=== PATIENT | male | born 1975 | race African-American/Black ===

== ENCOUNTER 2020-06-29 07:49 | Inpatient (IN) | payer SELFPAY ==
[~2020-06-29] VITALS: Ht 165.1 cm; Wt 80.0 kg
[2020-06-29] MEDS ORDERED: IV NORMAL SALINE 1000ML BAG 1,000 ML IV ONE ×2 (08:15→10:30)
[2020-06-29] MEDS ORDERED: MORPHINE SULFATE 4 MG/ML VIAL. IV ONE (08:15)
[2020-06-29] MEDS ORDERED: ONDANSETRON PF 4 MG/2 ML VIAL. IVP ONE (08:15)
[2020-06-29 08:19] LABS: BASO % 1 % (0-3); EOS % 0 % (0-3); HEMATOCRIT 47.5 % (39.0-53.0); HEMOGLOBIN 16.2 g/dL (13.0-17.5); LYMPH # 1.4 x10^3/uL (1.0-4.8); LYMPH % 14 % (24-48); MEAN CORPUSCULAR HEMOGLOBIN 34 pg (25-35); MEAN CORPUSCULAR HGB CONC 34 g/dL (31-37); MEAN CORPUSCULAR VOLUME 98 fL (79-100); MONO # 0.7 x10^3/uL (0.0-1.1); MONO % 7 % (0-9); NEUT # 7.6 x10^3/uL (1.8-7.7); NEUT % 78 % (31-73); PLATELET COUNT 315 x10^3/uL (140-400); RED BLOOD COUNT 4.83 x10^6/uL (4.30-5.70); RED CELL DISTRIBUTION WIDTH 13.8 % (11.5-14.5); WHITE BLOOD COUNT 9.7 x10^3/uL (4.0-11.0)
[2020-06-29 08:28] LABS: CALCIUM 8.7 mg/dL (8.5-10.1); CREATININE 0.8 mg/dL (0.7-1.3); GFR 128.3; POTASSIUM 4.2 mmol/L (3.5-5.1)
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
[2020-06-29 08:44] LABS: ALBUMIN 4.1 g/dL (3.4-5.0); TOTAL BILIRUBIN 0.5 mg/dL (0.2-1.0); TOTAL PROTEIN 8.3 g/dL (6.4-8.2)
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
[2020-06-29] MEDS ORDERED: CONTRAST GIVEN. MC PRN ×2 (09:30→18:00)
[2020-06-29] MEDS ORDERED: IOHEXOL 300 MG/ML 100ML VIAL. IV ONE ×2 (09:30→18:00)
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
[2020-06-29] MEDS ORDERED: ONDANSETRON PF 4 MG/2 ML VIAL. IV PRN ×2 (12:00→12:30)
[2020-06-29] MEDS: IV NORMAL SALINE 1000ML BAG 1,000 ML IV SCH ×4 (12:00→22:26)
[2020-06-29 12:30] VITALS: BP 150/96
[2020-06-29] MEDS ORDERED: LORazepam 0.5 MG TABLET PO PRN (12:30)
[2020-06-29] MEDS ORDERED: DOCUSATE SODIUM 100 MG CAPSULE. PO PRN (12:30)
[2020-06-29] MEDS ORDERED: PANTOPRAZOLE 40 MG TABLET.DR. PO ONE (12:30)
[2020-06-29] MEDS ORDERED: ALBUTEROL SULFATE 2.5 MG/3 ML NEBU. NEB PRN (12:30)
[2020-06-29] MEDS ORDERED: SODIUM PHOSPHATES 19/7GM 133 ML ENEMA. PR PRN (12:30)
[2020-06-29] MEDS ORDERED: MAG HYDROX/ALUMINUM HYD/SIMETH 30 ML ORAL.SUSP PO PRN (12:30)
[2020-06-29] MEDS ORDERED: ACETAMINOPHEN 325 MG TABLET. PO PRN (12:30)
[2020-06-29] MEDS ORDERED: cloNIDine HCL 0.1 MG TABLET PO PRN (12:30)
[2020-06-29] MEDS ORDERED: HALOPERIDOL LACTATE 5 MG/ML VIAL. IVP PRN (12:30)
[2020-06-29] MEDS ORDERED: 0.9 % SODIUM CHLORIDE 10 ML DISP.SYRIN. IV PRN (12:30)
[2020-06-29] MEDS ORDERED: guaiFENesin ORAL 200 MG/10 ML LIQUID. PO PRN (12:30)
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
[2020-06-29] MEDS ORDERED: MULTIVIT INFUSN,ADULT 4,VIT K 10 ML, THIAMINE INJ 100 MG, FOLIC ACID INJ 1 MG in IV NOR... IV ONE (13:00)
--- NOTE | 2020-06-29 13:15 | NUR ---
blood pressure remains elevated; given morphine for pain
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
[2020-06-29] MEDS: MORPHINE SULFATE 4 MG/ML VIAL. IV PRN ×2 (13:40→22:27)
[2020-06-29] MEDS: ENOXAPARIN 40 MG/0.4 ML SYRINGE. SQ SCH (13:40)
[2020-06-29 14:19] VITALS: BP 136/95
[2020-06-29] MEDS: cloNIDine HCL 0.1 MG TABLET PO PRN (14:20)
--- NOTE | 2020-06-29 14:20 | NUR ---
diastolic blood pressure remains elevated; medicated with Catapres. mother at bedside. states that the morphine helped with pain.
[2020-06-29 15:12] VITALS: BP 128/88
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
--- NOTE | 2020-06-29 17:51 | PDOC ---
PULMONARY PROGRESS NOTES DATE: 06/29/20 TIME: 17:50 Vitals Vital Signs Date Time Temp Pulse Resp B/P (MAP) Pulse Ox O2 Delivery O2 Flow Rate FiO2 06/29/20 17:11 97 Room Air 06/29/20 15:12 97.8 81 18 128/88 (101) 97.8 Labs Laboratory Tests Test 06/29/20 08:10 White Blood Count 9.7 x10^3/uL (4.0-11.0) Red Blood Count 4.83 x10^6/uL (4.30-5.70) Hemoglobin 16.2 g/dL (13.0-17.5) Hematocrit 47.5 % (39.0-53.0) Mean Corpuscular Volume 98 fL (79-100) Mean Corpuscular Hemoglobin 34 pg (25-35) Mean Corpuscular Hemoglobin Concent 34 g/dL (31-37) Red Cell Distribution Width 13.8 % (11.5-14.5) Platelet Count 315 x10^3/uL (140-400) Neutrophils (%) (Auto) 78 % (31-73) Lymphocytes (%) (Auto) 14 % (24-48) Monocytes (%) (Auto) 7 % (0-9) Eosinophils (%) (Auto) 0 % (0-3) Basophils (%) (Auto) 1 % (0-3) Neutrophils # (Auto) 7.6 x10^3/uL (1.8-7.7) Lymphocytes # (Auto) 1.4 x10^3/uL (1.0-4.8) Monocytes # (Auto) 0.7 x10^3/uL (0.0-1.1) Eosinophils # (Auto) 0.0 x10^3/uL (0.0-0.7) Basophils # (Auto) 0.0 x10^3/uL (0.0-0.2) Sodium Level 138 mmol/L (136-145) Potassium Level 4.2 mmol/L (3.5-5.1) Chloride Level 102 mmol/L (98-107) Carbon Dioxide Level 24 mmol/L (21-32) Anion Gap 12 (6-14) Blood Urea Nitrogen 11 mg/dL (8-26) Creatinine 0.8 mg/dL (0.7-1.3) Estimated GFR (Cockcroft-Gault) 128.3 BUN/Creatinine Ratio 14 (6-20) Glucose Level 108 mg/dL (70-99) Calcium Level 8.7 mg/dL (8.5-10.1) Total Bilirubin 0.5 mg/dL (0.2-1.0) Aspartate Amino Transf (AST/SGOT) 120 U/L (15-37) Alanine Aminotransferase (ALT/SGPT) 53 U/L (16-63) Alkaline Phosphatase 28 U/L (46-116) Creatine Kinase 6312 U/L (39-308) Total Protein 8.3 g/dL (6.4-8.2) Albumin 4.1 g/dL (3.4-5.0) Albumin/Globulin Ratio 1.0 (1.0-1.7) Ethyl Alcohol Level 10 mg/dL (0-10) Laboratory Tests Test 06/29/20 08:10 White Blood Count 9.7 x10^3/uL (4.0-11.0) Red Blood Count 4.83 x10^6/uL (4.30-5.70) Hemoglobin 16.2 g/dL (13.0-17.5) Hematocrit 47.5 % (39.0-53.0) Mean Corpuscular Volume 98 fL (79-100) Mean Corpuscular Hemoglobin 34 pg (25-35) Mean Corpuscular Hemoglobin Concent 34 g/dL (31-37) Red Cell Distribution Width 13.8 % (11.5-14.5) Platelet Count 315 x10^3/uL (140-400) Neutrophils (%) (Auto) 78 % (31-73) Lymphocytes (%) (Auto) 14 % (24-48) Monocytes (%) (Auto) 7 % (0-9) Eosinophils (%) (Auto) 0 % (0-3) Basophils (%) (Auto) 1 % (0-3) Neutrophils # (Auto) 7.6 x10^3/uL (1.8-7.7) Lymphocytes # (Auto) 1.4 x10^3/uL (1.0-4.8) Monocytes # (Auto) 0.7 x10^3/uL (0.0-1.1) Eosinophils # (Auto) 0.0 x10^3/uL (0.0-0.7) Basophils # (Auto) 0.0 x10^3/uL (0.0-0.2) Sodium Level 138 mmol/L (136-145) Potassium Level 4.2 mmol/L (3.5-5.1) Chloride Level 102 mmol/L (98-107) Carbon Dioxide Level 24 mmol/L (21-32) Anion Gap 12 (6-14) Blood Urea Nitrogen 11 mg/dL (8-26) Creatinine 0.8 mg/dL (0.7-1.3) Estimated GFR (Cockcroft-Gault) 128.3 BUN/Creatinine Ratio 14 (6-20) Glucose Level 108 mg/dL (70-99) Calcium Level 8.7 mg/dL (8.5-10.1) Total Bilirubin 0.5 mg/dL (0.2-1.0) Aspartate Amino Transf (AST/SGOT) 120 U/L (15-37) Alanine Aminotransferase (ALT/SGPT) 53 U/L (16-63) Alkaline Phosphatase 28 U/L (46-116) Creatine Kinase 6312 U/L (39-308) Total Protein 8.3 g/dL (6.4-8.2) Albumin 4.1 g/dL (3.4-5.0) Albumin/Globulin Ratio 1.0 (1.0-1.7) Ethyl Alcohol Level 10 mg/dL (0-10) Impression . Full consult to be dictated Patient examined and evaluated. CT reviewed, no significant pneumothorax no pulmonary contusion, I will sign off, please call if needed KERRI BROWN MD Jun 29, 2020 17:51
[2020-06-29] MEDS ORDERED: IOHEXOL 240 MG/ML 50ML VIAL. PO ONE (18:00)
[2020-06-29 18:23] VITALS: BP 139/99
--- NOTE | 2020-06-29 18:36 | NUR ---
offered contrast for ct scan. he refused at this time. ct scan notified. if change his mind will call ct. scan
[2020-06-29 22:29] VITALS: BP 138/99
--- NOTE | 2020-06-29 22:41 | NUR ---
CT called regarding Patient declining CT scan earlier. Pqatient questioned as to if he would do CT scan. Patient refused. Patient stated "I've been through enough, I just want to go home."
[2020-06-30 02:38] VITALS: BP 124/89
[2020-06-30] MEDS: IV NORMAL SALINE 1000ML BAG 1,000 ML IV SCH ×3 (04:00→12:10)
--- NOTE | 2020-06-30 04:36 | EKG ---
[facility] [address] [place] [address] Test Date: 2020-06-29 Test Time: 08:06:34 Pat Name: SHAHZAD PETERSON Department: Room: [facility] Gender: M Alpine Patroller: : 1975 Requested By: DARLENE NGUYEN Order Number: [id number] Reading MD: Measurements Intervals Norris Rate: 95 P: 36 TN: 180 QRS: 38 QRSD: 82 T: 21 QT: 336 QTc: 425 Interpretive Statements SINUS RHYTHM OTHERWISE NORMAL ECG RI6.02 No previous ECG available for comparison
[2020-06-30 04:54] LABS: BASO # 0.1 x10^3/uL (0.0-0.2); BASO % 1 % (0-3); EOS # 0.1 x10^3/uL (0.0-0.7); EOS % 1 % (0-3); HEMOGLOBIN 14.1 g/dL (13.0-17.5); LYMPH # 2.7 x10^3/uL (1.0-4.8); LYMPH % 43 % (24-48); MEAN CORPUSCULAR HEMOGLOBIN 33 pg (25-35); MEAN CORPUSCULAR HGB CONC 34 g/dL (31-37); MEAN CORPUSCULAR VOLUME 99 fL (79-100); MONO # 0.7 x10^3/uL (0.0-1.1); MONO % 11 % (0-9); NEUT # 2.8 x10^3/uL (1.8-7.7); NEUT % 44 % (31-73); PLATELET COUNT 251 x10^3/uL (140-400); RED BLOOD COUNT 4.22 x10^6/uL (4.30-5.70); RED CELL DISTRIBUTION WIDTH 13.9 % (11.5-14.5); WHITE BLOOD COUNT 6.4 x10^3/uL (4.0-11.0)
[2020-06-30 05:07] LABS: CALCIUM 8.1 mg/dL (8.5-10.1); CREATININE 0.8 mg/dL (0.7-1.3); GFR 128.3; POTASSIUM 4.3 mmol/L (3.5-5.1)
[2020-06-30 05:21] LABS: ALBUMIN 3.3 g/dL (3.4-5.0); TOTAL BILIRUBIN 0.7 mg/dL (0.2-1.0); TOTAL PROTEIN 6.5 g/dL (6.4-8.2)
[2020-06-30 06:44] VITALS: BP 132/96
--- NOTE | 2020-06-30 08:44 | PDOC ---
PULMONARY PROGRESS NOTES DATE: 06/30/20 TIME: 08:44 Vitals Vital Signs Date Time Temp Pulse Resp B/P (MAP) Pulse Ox O2 Delivery O2 Flow Rate FiO2 06/30/20 06:44 98.6 73 18 132/96 (108) 96 Room Air 98.6 Labs Laboratory Tests Test 06/29/20 08:10 06/30/20 04:30 White Blood Count 9.7 x10^3/uL (4.0-11.0) 6.4 x10^3/uL (4.0-11.0) Red Blood Count 4.83 x10^6/uL (4.30-5.70) 4.22 x10^6/uL (4.30-5.70) Hemoglobin 16.2 g/dL (13.0-17.5) 14.1 g/dL (13.0-17.5) Hematocrit 47.5 % (39.0-53.0) 42.0 % (39.0-53.0) Mean Corpuscular Volume 98 fL (79-100) 99 fL (79-100) Mean Corpuscular Hemoglobin 34 pg (25-35) 33 pg (25-35) Mean Corpuscular Hemoglobin Concent 34 g/dL (31-37) 34 g/dL (31-37) Red Cell Distribution Width 13.8 % (11.5-14.5) 13.9 % (11.5-14.5) Platelet Count 315 x10^3/uL (140-400) 251 x10^3/uL (140-400) Neutrophils (%) (Auto) 78 % (31-73) 44 % (31-73) Lymphocytes (%) (Auto) 14 % (24-48) 43 % (24-48) Monocytes (%) (Auto) 7 % (0-9) 11 % (0-9) Eosinophils (%) (Auto) 0 % (0-3) 1 % (0-3) Basophils (%) (Auto) 1 % (0-3) 1 % (0-3) Neutrophils # (Auto) 7.6 x10^3/uL (1.8-7.7) 2.8 x10^3/uL (1.8-7.7) Lymphocytes # (Auto) 1.4 x10^3/uL (1.0-4.8) 2.7 x10^3/uL (1.0-4.8) Monocytes # (Auto) 0.7 x10^3/uL (0.0-1.1) 0.7 x10^3/uL (0.0-1.1) Eosinophils # (Auto) 0.0 x10^3/uL (0.0-0.7) 0.1 x10^3/uL (0.0-0.7) Basophils # (Auto) 0.0 x10^3/uL (0.0-0.2) 0.1 x10^3/uL (0.0-0.2) Sodium Level 138 mmol/L (136-145) 138 mmol/L (136-145) Potassium Level 4.2 mmol/L (3.5-5.1) 4.3 mmol/L (3.5-5.1) Chloride Level 102 mmol/L (98-107) 105 mmol/L (98-107) Carbon Dioxide Level 24 mmol/L (21-32) 26 mmol/L (21-32) Anion Gap 12 (6-14) 7 (6-14) Blood Urea Nitrogen 11 mg/dL (8-26) 11 mg/dL (8-26) Creatinine 0.8 mg/dL (0.7-1.3) 0.8 mg/dL (0.7-1.3) Estimated GFR (Cockcroft-Gault) 128.3 128.3 BUN/Creatinine Ratio 14 (6-20) 14 (6-20) Glucose Level 108 mg/dL (70-99) 86 mg/dL (70-99) Calcium Level 8.7 mg/dL (8.5-10.1) 8.1 mg/dL (8.5-10.1) Total Bilirubin 0.5 mg/dL (0.2-1.0) 0.7 mg/dL (0.2-1.0) Aspartate Amino Transf (AST/SGOT) 120 U/L (15-37) 76 U/L (15-37) Alanine Aminotransferase (ALT/SGPT) 53 U/L (16-63) 48 U/L (16-63) Alkaline Phosphatase 28 U/L (46-116) 21 U/L (46-116) Creatine Kinase 6312 U/L (39-308) 3884 U/L (39-308) Total Protein 8.3 g/dL (6.4-8.2) 6.5 g/dL (6.4-8.2) Albumin 4.1 g/dL (3.4-5.0) 3.3 g/dL (3.4-5.0) Albumin/Globulin Ratio 1.0 (1.0-1.7) 1.0 (1.0-1.7) Ethyl Alcohol Level 10 mg/dL (0-10) Laboratory Tests Test 06/30/20 04:30 White Blood Count 6.4 x10^3/uL (4.0-11.0) Red Blood Count 4.22 x10^6/uL (4.30-5.70) Hemoglobin 14.1 g/dL (13.0-17.5) Hematocrit 42.0 % (39.0-53.0) Mean Corpuscular Volume 99 fL (79-100) Mean Corpuscular Hemoglobin 33 pg (25-35) Mean Corpuscular Hemoglobin Concent 34 g/dL (31-37) Red Cell Distribution Width 13.9 % (11.5-14.5) Platelet Count 251 x10^3/uL (140-400) Neutrophils (%) (Auto) 44 % (31-73) Lymphocytes (%) (Auto) 43 % (24-48) Monocytes (%) (Auto) 11 % (0-9) Eosinophils (%) (Auto) 1 % (0-3) Basophils (%) (Auto) 1 % (0-3) Neutrophils # (Auto) 2.8 x10^3/uL (1.8-7.7) Lymphocytes # (Auto) 2.7 x10^3/uL (1.0-4.8) Monocytes # (Auto) 0.7 x10^3/uL (0.0-1.1) Eosinophils # (Auto) 0.1 x10^3/uL (0.0-0.7) Basophils # (Auto) 0.1 x10^3/uL (0.0-0.2) Sodium Level 138 mmol/L (136-145) Potassium Level 4.3 mmol/L (3.5-5.1) Chloride Level 105 mmol/L (98-107) Carbon Dioxide Level 26 mmol/L (21-32) Anion Gap 7 (6-14) Blood Urea Nitrogen 11 mg/dL (8-26) Creatinine 0.8 mg/dL (0.7-1.3) Estimated GFR (Cockcroft-Gault) 128.3 BUN/Creatinine Ratio 14 (6-20) Glucose Level 86 mg/dL (70-99) Calcium Level 8.1 mg/dL (8.5-10.1) Total Bilirubin 0.7 mg/dL (0.2-1.0) Aspartate Amino Transf (AST/SGOT) 76 U/L (15-37) Alanine Aminotransferase (ALT/SGPT) 48 U/L (16-63) Alkaline Phosphatase 21 U/L (46-116) Creatine Kinase 3884 U/L (39-308) Total Protein 6.5 g/dL (6.4-8.2) Albumin 3.3 g/dL (3.4-5.0) Albumin/Globulin Ratio 1.0 (1.0-1.7) Impression . Full consult dictated Patient examined and evaluated. CT reviewed, no significant pneumothorax no pulmonary contusion, I will sign off, please call if needed KERRI BROWN MD Jun 30, 2020 08:44
[2020-06-30] MEDS: THIAMINE 100 MG TABLET. PO SCH (08:56)
[2020-06-30] MEDS: FOLIC ACID 1 MG TABLET. PO SCH (08:57)
[2020-06-30] MEDS: MULTIVITAMIN with MINERAL TABLET. PO SCH (08:57)
--- NOTE | 2020-06-30 09:00 | NUR ---
refused the Ct scan of the abdomen. states" there is nothing wrong with my stomach" denies any abdominal discomfort and is passing flatus. has not had a bm at this time. no appetite, but no nausea.
--- NOTE | 2020-06-30 09:50 | PDOC ---
FAITH STOKES CRAFT COORDINATOR 06/30/20 0950: SURGICAL PROGRESS NOTE DATE: 06/30/20 TIME: 09:49 Subjective denies abdominal pain no nausea or emesis tolerating diet not wanting to drink contrast for ct Vital Signs Vital Signs Date Time Temp Pulse Resp B/P (MAP) Pulse Ox O2 Delivery O2 Flow Rate FiO2 06/30/20 08:00 Room Air 06/30/20 06:44 98.6 73 18 132/96 (108) 96 98.6 I&O l Intake and Output 06/30/20 07:00 Intake Total 5807.2 ml Output Total 2 ml Balance 5805.2 ml Intake Oral 1250 ml IV Total 4557.2 ml Output Urine Total 2 ml General: Alert, Oriented X3, Cooperative Abdomen: Soft, No tenderness, No hepatosplenomegaly Labs Laboratory Tests Test 06/29/20 08:10 06/30/20 04:30 White Blood Count 9.7 x10^3/uL (4.0-11.0) 6.4 x10^3/uL (4.0-11.0) Red Blood Count 4.83 x10^6/uL (4.30-5.70) 4.22 x10^6/uL (4.30-5.70) Hemoglobin 16.2 g/dL (13.0-17.5) 14.1 g/dL (13.0-17.5) Hematocrit 47.5 % (39.0-53.0) 42.0 % (39.0-53.0) Mean Corpuscular Volume 98 fL (79-100) 99 fL (79-100) Mean Corpuscular Hemoglobin 34 pg (25-35) 33 pg (25-35) Mean Corpuscular Hemoglobin Concent 34 g/dL (31-37) 34 g/dL (31-37) Red Cell Distribution Width 13.8 % (11.5-14.5) 13.9 % (11.5-14.5) Platelet Count 315 x10^3/uL (140-400) 251 x10^3/uL (140-400) Neutrophils (%) (Auto) 78 % (31-73) 44 % (31-73) Lymphocytes (%) (Auto) 14 % (24-48) 43 % (24-48) Monocytes (%) (Auto) 7 % (0-9) 11 % (0-9) Eosinophils (%) (Auto) 0 % (0-3) 1 % (0-3) Basophils (%) (Auto) 1 % (0-3) 1 % (0-3) Neutrophils # (Auto) 7.6 x10^3/uL (1.8-7.7) 2.8 x10^3/uL (1.8-7.7) Lymphocytes # (Auto) 1.4 x10^3/uL (1.0-4.8) 2.7 x10^3/uL (1.0-4.8) Monocytes # (Auto) 0.7 x10^3/uL (0.0-1.1) 0.7 x10^3/uL (0.0-1.1) Eosinophils # (Auto) 0.0 x10^3/uL (0.0-0.7) 0.1 x10^3/uL (0.0-0.7) Basophils # (Auto) 0.0 x10^3/uL (0.0-0.2) 0.1 x10^3/uL (0.0-0.2) Sodium Level 138 mmol/L (136-145) 138 mmol/L (136-145) Potassium Level 4.2 mmol/L (3.5-5.1) 4.3 mmol/L (3.5-5.1) Chloride Level 102 mmol/L (98-107) 105 mmol/L (98-107) Carbon Dioxide Level 24 mmol/L (21-32) 26 mmol/L (21-32) Anion Gap 12 (6-14) 7 (6-14) Blood Urea Nitrogen 11 mg/dL (8-26) 11 mg/dL (8-26) Creatinine 0.8 mg/dL (0.7-1.3) 0.8 mg/dL (0.7-1.3) Estimated GFR (Cockcroft-Gault) 128.3 128.3 BUN/Creatinine Ratio 14 (6-20) 14 (6-20) Glucose Level 108 mg/dL (70-99) 86 mg/dL (70-99) Calcium Level 8.7 mg/dL (8.5-10.1) 8.1 mg/dL (8.5-10.1) Total Bilirubin 0.5 mg/dL (0.2-1.0) 0.7 mg/dL (0.2-1.0) Aspartate Amino Transf (AST/SGOT) 120 U/L (15-37) 76 U/L (15-37) Alanine Aminotransferase (ALT/SGPT) 53 U/L (16-63) 48 U/L (16-63) Alkaline Phosphatase 28 U/L (46-116) 21 U/L (46-116) Creatine Kinase 6312 U/L (39-308) 3884 U/L (39-308) Total Protein 8.3 g/dL (6.4-8.2) 6.5 g/dL (6.4-8.2) Albumin 4.1 g/dL (3.4-5.0) 3.3 g/dL (3.4-5.0) Albumin/Globulin Ratio 1.0 (1.0-1.7) 1.0 (1.0-1.7) Ethyl Alcohol Level 10 mg/dL (0-10) Laboratory Tests Test 06/30/20 04:30 White Blood Count 6.4 x10^3/uL (4.0-11.0) Red Blood Count 4.22 x10^6/uL (4.30-5.70) Hemoglobin 14.1 g/dL (13.0-17.5) Hematocrit 42.0 % (39.0-53.0) Mean Corpuscular Volume 99 fL (79-100) Mean Corpuscular Hemoglobin 33 pg (25-35) Mean Corpuscular Hemoglobin Concent 34 g/dL (31-37) Red Cell Distribution Width 13.9 % (11.5-14.5) Platelet Count 251 x10^3/uL (140-400) Neutrophils (%) (Auto) 44 % (31-73) Lymphocytes (%) (Auto) 43 % (24-48) Monocytes (%) (Auto) 11 % (0-9) Eosinophils (%) (Auto) 1 % (0-3) Basophils (%) (Auto) 1 % (0-3) Neutrophils # (Auto) 2.8 x10^3/uL (1.8-7.7) Lymphocytes # (Auto) 2.7 x10^3/uL (1.0-4.8) Monocytes # (Auto) 0.7 x10^3/uL (0.0-1.1) Eosinophils # (Auto) 0.1 x10^3/uL (0.0-0.7) Basophils # (Auto) 0.1 x10^3/uL (0.0-0.2) Sodium Level 138 mmol/L (136-145) Potassium Level 4.3 mmol/L (3.5-5.1) Chloride Level 105 mmol/L (98-107) Carbon Dioxide Level 26 mmol/L (21-32) Anion Gap 7 (6-14) Blood Urea Nitrogen 11 mg/dL (8-26) Creatinine 0.8 mg/dL (0.7-1.3) Estimated GFR (Cockcroft-Gault) 128.3 BUN/Creatinine Ratio 14 (6-20) Glucose Level 86 mg/dL (70-99) Calcium Level 8.1 mg/dL (8.5-10.1) Total Bilirubin 0.7 mg/dL (0.2-1.0) Aspartate Amino Transf (AST/SGOT) 76 U/L (15-37) Alanine Aminotransferase (ALT/SGPT) 48 U/L (16-63) Alkaline Phosphatase 21 U/L (46-116) Creatine Kinase 3884 U/L (39-308) Total Protein 6.5 g/dL (6.4-8.2) Albumin 3.3 g/dL (3.4-5.0) Albumin/Globulin Ratio 1.0 (1.0-1.7) Problem List Problems Medical Problems: (1) Closed left clavicular fracture Status: Acute (2) Fracture of ribs, multiple Status: Acute (3) Head injury Status: Acute (4) Rhabdomyolysis Status: Acute (5) Separation of left acromioclavicular joint, type 5 Status: Acute Assessment/Plan benign abdominal exam observation Justicifation of Admission Dx: Justifications for Admission: Justification of Admission Dx: Yes (rhabdo, ac joint separation, clavicle fx, ribs fracture) SHANE KUMARI MD 06/30/20 4387: SURGICAL PROGRESS NOTE Assessment/Plan Pt seen and examined. Agree with Ms. Stokes's note Pt with c/o shoulder pain, denies abd pain pt not interested in CT a/p will sign off but please call for questions. FAITH STOKES APRN Jun 30, 2020 09:50 SHANE KUMARI MD Jun 30, 2020 18:07
--- NOTE | 2020-06-30 11:00 | NUR ---
became unsteady while attempting to pull up his pants. denies dizziness just all of sudden lost balance. instructed not to get up by himself. as he is walking becomes steadier; uses iv pole to stabilize himself.
[2020-06-30 11:30] VITALS: BP 146/103
[2020-06-30] MEDS: cloNIDine HCL 0.1 MG TABLET PO PRN (11:41)
[2020-06-30] MEDS: HYDROmorphone 2 MG/ML VIAL IV PRN ×2 (12:12→19:47)
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
[2020-06-30 12:22] LABS: BILIRUBIN,URINE NEGATIVE (NEG); CLARITY,URINE CLEAR; COLOR,URINE YELLOW; NITRITE,URINE NEGATIVE (NEG); PH,URINE 7.5 (<5.0-8.0); PROTEIN,URINE NEGATIVE (NEG-TRACE); UROBILINOGEN,URINE 0.2 mg/dL (0.2 mg/dL)
[2020-06-30 12:29] LABS: BACTERIA,URINE 0 /HPF (0-FEW); SQUAMOUS EPITHELIAL CELL,UR FEW /LPF; WBC,URINE 0 /HPF (0-4)
[2020-06-30 13:35] LABS: BARBITURATES NEG (NEG); BENZODIAZEPINES NEG (NEG); CANNABINOIDS POS (NEG); COCAINE NEG (NEG); METHADONE NEG (NEG); OPIATES NEG (NEG); PHENCYCLIDINE NEG (NEG)
[2020-06-30 13:36] LABS: AMPHETAMINE/METHAMPHETAMINE NEG (NEG)
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
[2020-06-30] MEDS: ENOXAPARIN 40 MG/0.4 ML SYRINGE. SQ SCH (15:00)
[2020-06-30 15:02] VITALS: BP 119/82
--- NOTE | 2020-06-30 15:36 | NUR ---
upon waking up becomes little lightheaded. denies double vision gloria pulses strong sensation bilaterally remains unchanged. denies headache. blood pressure is better at this time. instructed to call for help and not to get up by himself; verbalized understanding. urine specimen sent to lab per request Dr. Banda.
[2020-06-30 18:30] VITALS: BP 125/85
[2020-06-30 23:20] VITALS: BP 126/88
[2020-07-01] MEDS: IV NORMAL SALINE 1000ML BAG 1,000 ML IV SCH ×2 (02:52→11:40)
[2020-07-01 02:56] VITALS: BP 125/90
[2020-07-01] MEDS: HYDROmorphone 2 MG/ML VIAL IV PRN (06:12)
[2020-07-01 06:13] VITALS: BP 149/89
[2020-07-01 06:26] LABS: CALCIUM 8.3 mg/dL (8.5-10.1); CREATININE 0.7 mg/dL (0.7-1.3); GFR 149.6; POTASSIUM 4.6 mmol/L (3.5-5.1)
[2020-07-01] MEDS ORDERED: oxyCODONE/APAP 10/325 1 TAB TABLET PO PRN (08:45)
[2020-07-01] MEDS: MULTIVITAMIN with MINERAL TABLET. PO SCH (09:38)
[2020-07-01] MEDS: THIAMINE 100 MG TABLET. PO SCH (09:38)
[2020-07-01] MEDS: FOLIC ACID 1 MG TABLET. PO SCH (09:38)
[2020-07-01 11:47] VITALS: BP 138/94
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
--- NOTE | 2020-07-01 12:00 | NUR ---
reviewed discharge instructions. to follow up with the orthopedic doctor to get his clavicle fixed and to keep his arm in his sling, not to lift anything with his left arm. to find a primary doctor and have his blood pressure checked. it was elevated while in the hospital and needed to take Catapres at least 3-4 times to bring down. to drink lots of fluids to keep his kidneys functioning. verbalized understanding of these instructions.
--- NOTE | 2020-07-01 12:32 | DISCH ---
DISCHARGE INSTRUCTIONS Condition on Discharge Condition on Discharge: Stable Activity After Discharge Activity Instructions for Disc: Activity as tolerated Lifting Instructions after Dis: Do not lift >10 pounds Driving Instructions after Dis: Do not drive today Weight Bearing Status after Di: As tolerated Follow-Up Follow up with: PCP within 1 week of discharge Follow Up With: Orthopedic surgery regarding your AC joint injury MAGNUS PATEL MD Jul 01, 2020 12:32
[2020-07-01] MEDS: ENOXAPARIN 40 MG/0.4 ML SYRINGE. SQ SCH (13:00)
--- NOTE | 2020-07-01 15:57 | NUR ---
reviewed written discharge instructions with Juan. instructed to call and make an appt with Dr. Benitez for surgery and primary care dr for possible blood pressure. verbalized understanding of these instructions. instructed to keep arm in sling, scripts given. unable to call for the percocet. saline lock removed from right ac. ready to go home .
--- NOTE | 2020-07-01 16:45 | NUR ---
dismissed to home
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
== END 2020-07-01 16:45 | disposition home or self-care (01) | DRG 184 ==
LOC: ER 07:49 → 4 SOUTHEST 11:45
PROVIDERS: ADMIT Family Medicine; ATTEND Family Medicine
DX: S22.42XA Multiple fractures of ribs, left side, initial encounter for closed fracture (principal); M62.82 Rhabdomyolysis; S42.022A Displaced fracture of shaft of left clavicle, initial encounter for closed fracture; S00.83XA Contusion of other part of head, initial encounter; S43.102A Unspecified dislocation of left acromioclavicular joint, initial encounter; F17.210 Nicotine dependence, cigarettes, uncomplicated; I10 Essential (primary) hypertension; F12.10 Cannabis abuse, uncomplicated; V86.55XA Driver of 3- or 4- wheeled all-terrain vehicle (ATV) injured in nontraffic accident, initial encounter; Y93.I9 Activity, other involving external motion; Y92.410 Unspecified street and highway as the place of occurrence of the external cause; Y99.8 Other external cause status; Z82.49 Family history of ischemic heart disease and other diseases of the circulatory system
CPT/HCPCS: 36415; 70450; 71045; 71260; 72125; 73000; 80048; 80053; 80307; 81001; 82550; 85025; 93005; 94760; 96361; 96374; 96375; 99285; 99406; G0480; J1170; J1650; J2270; J2405; J3411; J3490; J7030; Q9967; 97110-GP; 97116-GP; 97530-GP; 97535-GO; G0378

== ENCOUNTER 2022-01-01 16:10 | Inpatient (IN) | payer SELFPAY ==
[~2022-01-01] VITALS: Ht 165.1 cm; Wt 84.0 kg
[2022-01-01] MEDS ORDERED: IV NORMAL SALINE 1000ML BAG 1,000 ML IV ONE (17:45)
[2022-01-01] MEDS ORDERED: ONDANSETRON PF 4 MG/2 ML VIAL. IVP ONE (17:45)
[2022-01-01] MEDS ORDERED: fentaNYL PF VIAL 100 MCG/2 ML VIAL IVP ONE (17:45)
[2022-01-01 17:47] LABS: BASO # 0.1 x10^3/uL (0.0-0.2); BASO % 0 % (0-3); EOS % 0 % (0-3); HEMATOCRIT 48.2 % (39.0-53.0); HEMOGLOBIN 16.3 g/dL (13.0-17.5); LYMPH # 1.6 x10^3/uL (1.0-4.8); LYMPH % 12 % (24-48); MEAN CORPUSCULAR HEMOGLOBIN 33 pg (25-35); MEAN CORPUSCULAR HGB CONC 34 g/dL (31-37); MEAN CORPUSCULAR VOLUME 97 fL (79-100); MONO # 1.4 x10^3/uL (0.0-1.1); MONO % 11 % (0-9); NEUT # 9.8 x10^3/uL (1.8-7.7); NEUT % 77 % (31-73); PLATELET COUNT 391 x10^3/uL (140-400); RED BLOOD COUNT 4.97 x10^6/uL (4.30-5.70); RED CELL DISTRIBUTION WIDTH 13.2 % (11.5-14.5); WHITE BLOOD COUNT 12.8 x10^3/uL (4.0-11.0)
--- NOTE | 2022-01-01 17:51 | PHYS DOC ---
Past Medical History Past Medical History: No Pertinent History, STD Past Surgical History: No Surgical History Smoking Status: Current Every Day Smoker Alcohol Use: Heavy Drug Use: Marijuana General Adult EDM: Chief Complaint: OTHER COMPLAINTS HPI: HPI: Patient is a 46-year-old male that presents today with rectal pain. Patient states the pain started approximately 4 days ago and is progressively gotten worse, he states his last bowel movement was approximately 4 days ago. Patient states that he has had hemorrhoids in the past has been using Tucks, and Prep aration H to see if that would help his rectal pain and has not helped at all and he presents today for further evaluation. Patient also denies chest pain or shortness of air but does states he has had fever and chills and has been having sweats at home. Patient states he does not have any past medical history and has not seen a physician in quite some time. Patient also states that he has a bump in his right inguinal area that he is sought thought was a ingrown hair but he has been unable to "pop" the bump in his groin. Patient states that he has been drinking lots of fluids thus he states he has had increase urination but denies painful urination. Review of Systems: Review of Systems: Constitutional: Denies fever or chills. [] Eyes: Denies change in visual acuity. [] HENT: Denies nasal congestion or sore throat. [] Respiratory: Denies cough or shortness of breath. [] Cardiovascular: Denies chest pain or edema. [] GI: Rectal pain denies abdominal pain, nausea, vomiting, bloody stools or diarrhea. [] : Denies dysuria. [] Musculoskeletal: Denies back pain or joint pain. [] Integument: Denies rash. [] Neurologic: Denies headache, focal weakness or sensory changes. [] Endocrine: Denies polyuria or polydipsia. [] Lymphatic: Denies swollen glands. [] Psychiatric: Denies depression or anxiety. [] Heart Score: C/O Chest Pain: No Risk Factors: Risk Factors: DM, Current or recent (<one month) smoker, HTN, HLP, family history of CAD, obesity. Risk Scores: Score 0 - 3: 2.5% MACE over next 6 weeks - Discharge Home Score 4 - 6: 20.3% MACE over next 6 weeks - Admit for Clinical Observation Score 7 - 10: 72.7% MACE over next 6 weeks - Early Invasive Strategies Current Medications: Current Medications Medications (Trade) Dose Ordered Sig/Renata Start Time Stop Time Status Last Admin Dose Admin Sodium Chloride 1,000 ml @ 999 mls/hr 1X ONCE 01/01/22 17:45 01/01/22 18:45 Allergies: Allergies: Allergies Coded Allergies Type Severity Reaction Last Updated Verified No Known Drug Allergies 10/29/14 No Physical Exam: PE: Constitutional: Well developed, well nourished, mild distress, non-toxic appearance. [] HENT: Normocephalic, atraumatic, bilateral external ears normal, oropharynx moist, no oral exudates, nose normal. [] Eyes: PERRLA, EOMI, conjunctiva normal, no discharge. [] Neck: Normal range of motion, no tenderness, supple, no stridor. [] Cardiovascular:Heart rate regular rhythm, no murmur [] Lungs & Thorax: Bilateral breath sounds clear to auscultation [] Abdomen: Bowel sounds normal, soft, no tenderness, no masses, no pulsatile masses. [] Skin: Right inguinal hernia area has a 3 cm x 2 cm raised reddened area that is warm to the touch and painful. Back: No tenderness, no CVA tenderness. [] Extremities: No tenderness, no cyanosis, no clubbing, ROM intact, no edema. [] Neurologic: Alert and oriented X 3, normal motor function, normal sensory function, no focal deficits noted. [] Psychologic: Affect normal, judgement normal, mood normal. Rectal exam: This was performed with a adult school counselor at the bedside, patient has pain along the right buttocks area and does have a firm area along the right buttock near the anus, when pushed on it a small amount of purulent fluid was extracted, no redness noted area appears to be very deep. No hemorrhoids seen upon inspection. [] Current Patient Data: Labs: Laboratory Tests Test 01/01/22 17:06 White Blood Count 12.8 x10^3/uL Red Blood Count 4.97 x10^6/uL Hemoglobin 16.3 g/dL Hematocrit 48.2 % Mean Corpuscular Volume 97 fL Mean Corpuscular Hemoglobin 33 pg Mean Corpuscular Hemoglobin Concent 34 g/dL Red Cell Distribution Width 13.2 % Platelet Count 391 x10^3/uL Neutrophils (%) (Auto) 77 % Lymphocytes (%) (Auto) 12 % Monocytes (%) (Auto) 11 % Eosinophils (%) (Auto) 0 % Basophils (%) (Auto) 0 % Neutrophils # (Auto) 9.8 x10^3/uL Lymphocytes # (Auto) 1.6 x10^3/uL Monocytes # (Auto) 1.4 x10^3/uL Eosinophils # (Auto) 0.0 x10^3/uL Basophils # (Auto) 0.1 x10^3/uL Sodium Level 138 mmol/L Potassium Level 4.2 mmol/L Chloride Level 97 mmol/L Carbon Dioxide Level 25 mmol/L Anion Gap 16 Blood Urea Nitrogen 13 mg/dL Creatinine 0.8 mg/dL Estimated GFR (Cockcroft-Gault) 127.1 BUN/Creatinine Ratio 16 Glucose Level 99 mg/dL Lactic Acid Level 1.7 mmol/L Calcium Level 9.6 mg/dL Total Bilirubin 0.7 mg/dL Aspartate Amino Transf (AST/SGOT) 24 U/L Alanine Aminotransferase (ALT/SGPT) 41 U/L Alkaline Phosphatase 48 U/L Total Protein 10.0 g/dL Albumin 4.4 g/dL Albumin/Globulin Ratio 0.8 Current Medications Medications (Trade) Dose Ordered Sig/Renata Route PRN Reason Start Time Stop Time Status Last Admin Dose Admin Sodium Chloride 1,000 ml @ 999 mls/hr 1X ONCE IV 01/01/22 17:45 01/01/22 18:45 DC 01/01/22 17:46 Fentanyl Citrate (Fentanyl 2ml Vial) 50 mcg 1X ONCE IVP 01/01/22 17:45 01/01/22 17:48 DC 01/01/22 17:52 Ondansetron HCl (Zofran) 4 mg 1X ONCE IVP 01/01/22 17:45 01/01/22 17:48 DC 01/01/22 17:52 Iohexol (Omnipaque 300 Mg/ml) 75 ml 1X ONCE IV 01/01/22 18:45 01/01/22 18:48 DC 01/01/22 18:57 Hydromorphone HCl (Dilaudid) 0.5 mg 1X ONCE IVP 01/01/22 20:00 01/01/22 20:01 DC 3/13/22 20:01 Ceftriaxone Sodium (Rocephin) 1 gm 1X ONCE IVP 01/01/22 20:30 01/01/22 20:31 UNV Metronidazole 100 ml @ 100 mls/hr 1X ONCE IV 01/01/22 20:30 01/01/22 21:29 UNV Vital Signs: Vital Signs Date Time Temp Pulse Resp B/P (MAP) Pulse Ox O2 Delivery O2 Flow Rate FiO2 01/01/22 16:18 98.8 125 16 177/111 (133) 98 Room Air 98.8 EKG: EKG: [] Radiology/Procedures: Radiology/Procedures: REASON: perirectal abscess, omni 300 75 ml iv PROCEDURE: CT ABD PELV W/ IV CONTRST ONLY EXAMINATION: CT ABDOMEN+PELVIS W. Technique: Axial images with coronal and sagittal reconstructions are performed of abdomen and pelvis with intravenous contrast. 75 mL of Omnipaque 300 was administered intravenously. One or more of the following radiation dose reduction techniques was used: automated exposure control, adjustment of mA and/or KV according to patient size, and/or utilization of iterative reconstruction technique. HISTORY: 46 years Male perirectal abscess. COMPARISON: February 18, 2009. FINDINGS: The lung bases appear clear. The liver, spleen, pancreas, and adrenal glands appear unremarkable. The kidneys have symmetric enhancement. There is no hydronephrosis. The abdominal aorta is normal in caliber. No para-aortic significantly enlarged lymph node is seen. The appendix is normal. There is no bowel obstruction. The urinary bladder appear unremarkable. In the right inguinal region there is a subcutaneous area of fluid density measuring 1.2 cm with surrounding skin thickening could relate to underlying sebaceous cyst or subcutaneous abscess. In the perianal region centered at the 4:00 position of the anal canal there is a fluid collection measuring 4 x 1.8 cm with craniocaudal extension of the 3 cm suggestive of a perianal abscess. There is suggestion of a sinus tract from this area draining to the left the posterior aspect of the anus. Correlate clinically. The osseous structures appear grossly unremarkable. IMPRESSION: 1. Perianal abscess with suggestion of a sinus tract draining posteriorly and to the left of the anus. 2. In the right inguinal region there is a 1.1 cm subcutaneous fluid density area which could relate to a sebaceous cyst or a subcutaneous abscess. Electronically signed by: Blake Lui MD (01/01/2022 8:03 PM) [id number] [] Course & Med Decision Making: Course & Med Decision Making Pertinent Labs and Imaging studies reviewed. (See chart for details) [address] Simmons from general surgery he recommends keeping the patient n.p.o. after midnight and giving him broad-spectrum antibiotics and he will see the patient in the a.m. speak to patient regarding suggestion for admission he is agreeable to admitting and being seen by general surgery in the a.m. [address] Moncada he is agreeable to admitting this patient for further evaluation by general surgery for perianal abscess. Mando Disclaimer: Dragon Disclaimer: This electronic medical record was generated, in whole or in part, using a voice recognition dictation system. Departure Departure Impression: Primary Impression: Perianal abscess Disposition: ADMITTED INPATIENT Admitting Physician: TOBY Condition: STABLE Referrals: NO PCP (PCP) Scripts No Active Prescriptions or Reported Meds CHACE HYMAN APRN Jan 01, 2022 17:51
[2022-01-01 18:07] LABS: CALCIUM 9.6 mg/dL (8.5-10.1); CREATININE 0.8 mg/dL (0.7-1.3); GFR 127.1; POTASSIUM 4.2 mmol/L (3.5-5.1)
[2022-01-01 18:13] LABS: ALBUMIN 4.4 g/dL (3.4-5.0); ALBUMIN/GLOBULIN RATIO 0.8 (1.0-1.7); TOTAL BILIRUBIN 0.7 mg/dL (0.2-1.0)
[2022-01-01] MEDS ORDERED: IOHEXOL 300 MG/ML 100ML VIAL. IV ONE (18:45)
[2022-01-01] MEDS ORDERED: HYDROmorphone 2 MG/ML INJ. IVP ONE (20:00)
--- NOTE | 2022-01-01 20:06 | RAD ---
EXAMINATION: CT ABDOMEN+PELVIS W. Technique: Axial images with coronal and sagittal reconstructions are performed of abdomen and pelvis with intravenous contrast. 75 mL of Omnipaque 300 was administered intravenously. One or more of the following radiation dose reduction techniques was used: automated exposure control , adjustment of mA and/or KV according to patient size, and/or utilization of iterative reconstructio n technique. HISTORY: 46 years Male perirectal abscess. COMPARISON: February 18, 2009. FINDINGS: The lung bases appear clear. The liver, spleen, pancreas, and adrenal glands appear unremarkable. The kidneys have symmetric enhancement. There is no hydronephrosis. The abdominal aorta is normal in caliber. No para-aortic significantly enlarged lymph node is seen. The appendix is normal. There is no bowel obstruction. The urinary bladder appear unremarkable. In the right inguinal region there is a subcutaneous area of fluid density measuring 1.2 cm with surr ounding skin thickening could relate to underlying sebaceous cyst or subcutaneous abscess. In the perianal region centered at the 4:00 position of the anal canal there is a fluid collection me asuring 4 x 1.8 cm with craniocaudal extension of the 3 cm suggestive of a perianal abscess. There is suggestion of a sinus tract from this area draining to the left the posterior aspect of the anus. Co rrelate clinically. The osseous structures appear grossly unremarkable. IMPRESSION: 1. Perianal abscess with suggestion of a sinus tract draining posteriorly and to the left of the anus . 2. In the right inguinal region there is a 1.1 cm subcutaneous fluid density area which could relate to a sebaceous cyst or a subcutaneous abscess. Electronically signed by: Blake Lui MD (01/01/2022 8:03 PM) [id number]
[2022-01-01] MEDS ORDERED: cefTRIAXone IV Push 1 GM VIAL. IVP ONE (20:30)
[2022-01-01] MEDS ORDERED: ONDANSETRON PF 4 MG/2 ML VIAL. IVP PRN (20:45)
[2022-01-01 22:00] VITALS: BP 155/90
[2022-01-01] MEDS ORDERED: ACET325T9 PO (22:34)
[2022-01-01] MEDS: fentaNYL PF VIAL 100 MCG/2 ML VIAL IVP PRN (22:43)
[2022-01-01] MEDS: IV NORMAL SALINE 1000ML BAG 1,000 ML IV SCH (22:46)
[2022-01-02] VITALS (10 sets, daily range): BP systolic 69–155; BP diastolic 37–100
[2022-01-02] MEDS ORDERED: KETOROLAC 15 MG/ML VIAL. IVP ONE
[2022-01-02] MEDS: MORPHINE SULFATE 2 MG/ML INJ. IVP PRN ×3 (00:05→21:02)
[2022-01-02] MEDS: IV NORMAL SALINE 1000ML BAG 1,000 ML IV SCH ×2 (03:35→23:25)
[2022-01-02] MEDS ORDERED: LIDOCAINE 2% PF 5 ML VIAL. ONE (08:25)
[2022-01-02] MEDS ORDERED: ONDANSETRON PF 4 MG/2 ML VIAL. ONE (08:25)
[2022-01-02] MEDS ORDERED: PROPOFOL 10 MG/ML (20ML) VIAL. IV ONE (08:25)
[2022-01-02] MEDS ORDERED: fentaNYL PF VIAL 100 MCG/2 ML VIAL ONE ×3 (08:25→10:54)
[2022-01-02] MEDS ORDERED: FAMOTIDINE 20 MG/2 ML VIAL ONE (08:25)
[2022-01-02] MEDS ORDERED: MIDAZOLAM HCL/PF 2 MG/2 ML VIAL. ONE (08:25)
[2022-01-02] MEDS ORDERED: DEXAMETHASONE SOD PHOS 4 MG/ML VIAL ONE (08:25)
--- NOTE | 2022-01-02 08:37 | PDOC2 ---
[employer] 01/02/22 0837: CONSULT Date of Consult Date of Consult DATE: 01/02/22 TIME: 08:28 Reason for Consult Reason for Consult: perirectal abscess Referring Physician Referring Physician: ER Identification/Chief Complaint Chief Complaint rectal pain Source Source: Chart review, Patient History of Present Illness Reason for Visit: rectal pain and drainage. Started last , progressively worsened. Thought could be related to hemorrhoids, treatment however was unsuccessful. Also notes pain and swelling in right inguinal area. Thought was ingrown hair, started around the same time. No similar symptoms in past. Does smoke and frequent alcohol intake weekly Past Medical History Cardiovascular: No pertinent hx Heme/Onc: No pertinent hx Hepatobiliary: No pertinent hx Psych: Addictions Past Surgical History Past Surgical History: No pertinent history Family History Family History: Hypertension Social History <1 pack per day ALCOHOL: heavy Drugs: Marijuana Lives: with Family Current Problem List Problem List Problems Medical Problems: (1) Perianal abscess Status: Acute Current Medications Current Medications Current Medications Sodium Chloride 1,000 ml @ 999 mls/hr 1X ONCE IV Last administered on 01/01/22at 17:46; Start 01/01/22 at 17:45; Stop 01/01/22 at 18:45; Status DC Fentanyl Citrate (Fentanyl 2ml Vial) 50 mcg 1X ONCE IVP Last administered on 01/01/22at 17:52; Start 01/01/22 at 17:45; Stop 01/01/22 at 17:48; Status DC Ondansetron HCl (Zofran) 4 mg 1X ONCE IVP Last administered on 01/01/22at 17:52; Start 01/01/22 at 17:45; Stop 01/01/22 at 17:48; Status DC Iohexol (Omnipaque 300 Mg/ml) 75 ml 1X ONCE IV Last administered on 01/01/22at 18:57; Start 01/01/22 at 18:45; Stop 01/01/22 at 18:48; Status DC Hydromorphone HCl (Dilaudid) 0.5 mg 1X ONCE IVP Last administered on 01/01/22at 20:01; Start 01/01/22 at 20:00; Stop 01/01/22 at 20:01; Status DC Ceftriaxone Sodium (Rocephin) 1 gm 1X ONCE IVP Last administered on 01/01/22at 21:22; Start 01/01/22 at 20:30; Stop 01/01/22 at 20:31; Status DC Metronidazole 100 ml @ 100 mls/hr 1X ONCE IV Last administered on 01/01/22at 21:22; Start 01/01/22 at 20:30; Stop 01/01/22 at 21:29; Status DC Ondansetron HCl (Zofran) 4 mg PRN Q8HRS PRN IVP NAUSEA/VOMITING 1ST CHOICE; Start 01/01/22 at 20:45; Stop 01/02/22 at 20:44 Fentanyl Citrate (Fentanyl 2ml Vial) 50 mcg PRN Q1HR PRN IVP SEVERE PAIN 7-10 Last administered on 01/01/22at 22:43; Start 01/01/22 at 20:45; Stop 01/02/22 at 20:44 Sodium Chloride 1,000 ml @ 75 mls/hr [id number] IV Last administered on 01/02/22at 03:35; Start 01/01/22 at 20:45 Metronidazole 100 ml @ 100 mls/hr Q8HRS IV Last administered on 01/02/22at 06:15; Start 01/02/22 at 06:00 Ketorolac Tromethamine (Toradol 15mg Vial) 15 mg 1X ONCE IVP Last administered on 01/02/22at 00:05; Start 01/02/22 at 00:00; Stop 01/02/22 at 00:01; Status DC Morphine Sulfate (Morphine Sulfate) 2 mg PRN Q2HR PRN IVP SEVERE PAIN 7-10 Last administered on 01/02/22at 03:35; Start 01/01/22 at 23:45 Famotidine (Pepcid Vial) 20 mg STK-MED ONCE .ROUTE ; Start 01/02/22 at 08:25; Stop 01/02/22 at 08:25; Status DC Lidocaine HCl (Lidocaine Pf 2% Vial) 5 ml STK-MED ONCE .ROUTE ; Start 01/02/22 at 08:25; Stop 01/02/22 at 08:25; Status DC Ondansetron HCl (Zofran) 4 mg STK-MED ONCE .ROUTE ; Start 01/02/22 at 08:25; Stop 01/02/22 at 08:25; Status DC Propofol (Diprivan) 200 mg STK-MED ONCE IV ; Start 01/02/22 at 08:25; Stop 01/02/22 at 08:25; Status DC Dexamethasone Sodium Phosphate (Decadron) 4 mg STK-MED ONCE .ROUTE ; Start 01/02/22 at 08:25; Stop 01/02/22 at 08:25; Status DC Midazolam HCl (Versed) 2 mg STK-MED ONCE .ROUTE ; Start 01/02/22 at 08:25; Stop 01/02/22 at 08:26; Status DC Fentanyl Citrate (Fentanyl 2ml Vial) 100 mcg STK-MED ONCE .ROUTE ; Start 01/02/22 at 08:25; Stop 01/02/22 at 08:26; Status DC Active Scripts Active Reported Tylenol (Acetaminophen) 325 Mg Tablet 1,000 Mg PO PRN Q6HRS PRN Allergies Allergies: Coded Allergies: No Known Drug Allergies (Unverified , 10/29/14) ROS General: YES: Chills; No: Fatigue PSYCHOLOGICAL ROS: No: Anxiety, Depression Eyes: No Blurry vision, No Double vision HEENT: No: Heacaches, Sore Throat Hematological and Lymphatic: No: Bleeding Problems, Blood Clots Respiratory: No: Cough, Shortness of breath Cardiovascular: No Chest Pain, No Palpitations Gastrointestinal: No Nausea, No Vomiting Genitourinary: No Dysuria, No Hematuria Musculoskeletal: No Joint Pain, No Muscle Pain Neurological: No Headaches, No Impaired Coord/balance Skin: Yes Other (see hpi) Physical Exam General: Alert, Oriented X3, Cooperative HEENT: Atraumatic, PERRLA Lungs: Clear to auscultation, Normal air movement Heart: Regular rate, Normal S1, Normal S2 Abdomen: Soft, No tenderness Extremities: No clubbing, No cyanosis Skin: Other (perirectal area with TTP, purulent drainage, right inguinal area with swelling, tenderness ) Neuro: Normal gait, Normal speech Psych/Mental Status: Mental status NL, Mood NL MUSCULOSKELETAL: No deformity, No swelling Vitals VITALS Vital Signs Date Time Temp Pulse Resp B/P (MAP) Pulse Ox O2 Delivery O2 Flow Rate FiO2 01/02/22 07:00 98.3 107 20 155/94 (114) 96 Room Air 98.3 Labs Labs Laboratory Tests Test 01/01/22 17:06 01/01/22 23:30 White Blood Count 12.8 x10^3/uL (4.0-11.0) Red Blood Count 4.97 x10^6/uL (4.30-5.70) Hemoglobin 16.3 g/dL (13.0-17.5) Hematocrit 48.2 % (39.0-53.0) Mean Corpuscular Volume 97 fL (79-100) Mean Corpuscular Hemoglobin 33 pg (25-35) Mean Corpuscular Hemoglobin Concent 34 g/dL (31-37) Red Cell Distribution Width 13.2 % (11.5-14.5) Platelet Count 391 x10^3/uL (140-400) Neutrophils (%) (Auto) 77 % (31-73) Lymphocytes (%) (Auto) 12 % (24-48) Monocytes (%) (Auto) 11 % (0-9) Eosinophils (%) (Auto) 0 % (0-3) Basophils (%) (Auto) 0 % (0-3) Neutrophils # (Auto) 9.8 x10^3/uL (1.8-7.7) Lymphocytes # (Auto) 1.6 x10^3/uL (1.0-4.8) Monocytes # (Auto) 1.4 x10^3/uL (0.0-1.1) Eosinophils # (Auto) 0.0 x10^3/uL (0.0-0.7) Basophils # (Auto) 0.1 x10^3/uL (0.0-0.2) Sodium Level 138 mmol/L (136-145) Potassium Level 4.2 mmol/L (3.5-5.1) Chloride Level 97 mmol/L (98-107) Carbon Dioxide Level 25 mmol/L (21-32) Anion Gap 16 (6-14) Blood Urea Nitrogen 13 mg/dL (8-26) Creatinine 0.8 mg/dL (0.7-1.3) Estimated GFR (Cockcroft-Gault) 127.1 BUN/Creatinine Ratio 16 (6-20) Glucose Level 99 mg/dL (70-99) Lactic Acid Level 1.7 mmol/L (0.4-2.0) Calcium Level 9.6 mg/dL (8.5-10.1) Total Bilirubin 0.7 mg/dL (0.2-1.0) Aspartate Amino Transf (AST/SGOT) 24 U/L (15-37) Alanine Aminotransferase (ALT/SGPT) 41 U/L (16-63) Alkaline Phosphatase 48 U/L (46-116) Total Protein 10.0 g/dL (6.4-8.2) Albumin 4.4 g/dL (3.4-5.0) Albumin/Globulin Ratio 0.8 (1.0-1.7) SARS-CoV-2 Antigen (Rapid) Negative (NEGATIVE) Laboratory Tests Test 01/01/22 17:06 01/01/22 23:30 White Blood Count 12.8 x10^3/uL (4.0-11.0) Red Blood Count 4.97 x10^6/uL (4.30-5.70) Hemoglobin 16.3 g/dL (13.0-17.5) Hematocrit 48.2 % (39.0-53.0) Mean Corpuscular Volume 97 fL (79-100) Mean Corpuscular Hemoglobin 33 pg (25-35) Mean Corpuscular Hemoglobin Concent 34 g/dL (31-37) Red Cell Distribution Width 13.2 % (11.5-14.5) Platelet Count 391 x10^3/uL (140-400) Neutrophils (%) (Auto) 77 % (31-73) Lymphocytes (%) (Auto) 12 % (24-48) Monocytes (%) (Auto) 11 % (0-9) Eosinophils (%) (Auto) 0 % (0-3) Basophils (%) (Auto) 0 % (0-3) Neutrophils # (Auto) 9.8 x10^3/uL (1.8-7.7) Lymphocytes # (Auto) 1.6 x10^3/uL (1.0-4.8) Monocytes # (Auto) 1.4 x10^3/uL (0.0-1.1) Eosinophils # (Auto) 0.0 x10^3/uL (0.0-0.7) Basophils # (Auto) 0.1 x10^3/uL (0.0-0.2) Sodium Level 138 mmol/L (136-145) Potassium Level 4.2 mmol/L (3.5-5.1) Chloride Level 97 mmol/L (98-107) Carbon Dioxide Level 25 mmol/L (21-32) Anion Gap 16 (6-14) Blood Urea Nitrogen 13 mg/dL (8-26) Creatinine 0.8 mg/dL (0.7-1.3) Estimated GFR (Cockcroft-Gault) 127.1 BUN/Creatinine Ratio 16 (6-20) Glucose Level 99 mg/dL (70-99) Lactic Acid Level 1.7 mmol/L (0.4-2.0) Calcium Level 9.6 mg/dL (8.5-10.1) Total Bilirubin 0.7 mg/dL (0.2-1.0) Aspartate Amino Transf (AST/SGOT) 24 U/L (15-37) Alanine Aminotransferase (ALT/SGPT) 41 U/L (16-63) Alkaline Phosphatase 48 U/L (46-116) Total Protein 10.0 g/dL (6.4-8.2) Albumin 4.4 g/dL (3.4-5.0) Albumin/Globulin Ratio 0.8 (1.0-1.7) SARS-CoV-2 Antigen (Rapid) Negative (NEGATIVE) Assessment/Plan Assessment/Plan perirectal and Right inguinal abscesses will plan OR today consult, chart 25 min SHANE KUMARI MD 01/02/22 0906: CONSULT Assessment/Plan Assessment/Plan Pt seen and examined. Agree with Ms. Stokes's note Pt with c/o perianal pain and Right groin pain HR improved since admission. recent neck pain, but resolved no neck mass currently fluctuant area on right groin, marked with pt in preop rectal exam deferred currently secondary to pain TO OR for perianal abscess drainage and I and D of right groin abscess R/R/B/A d/w pt. Risks, including, but not limited to: bleeding, infection, damage to surrounding structures, risk of anesthesia. Smoking cessation is encouraged. He appears to understand, his questions are answered and he elects to proceed. Thanks for consult! FAITH STOKES ESHA Jan 02, 2022 08:37 SHANE KUMARI MD Jan 02, 2022 09:06
[2022-01-02] MEDS ORDERED: ceFAZolin 2GM PREMIX 2 GM/50 ML BAG IV ONE (09:15)
[2022-01-02] MEDS ORDERED: BUPIVACAINE-EPI 0.5% 30 ML VIAL KIT. ONE (09:37)
--- NOTE | 2022-01-02 10:09 | NUR ---
SW following. Discussed with RN, pt from home, room air, NPO, rapid COVID-19 negative. Pt having surgery today. Med Assist following for self pay status. SW will continue to follow.
--- NOTE | 2022-01-02 10:17 | PDOC1 ---
History and Physical Date of Admission Date of Admission DATE: 01/02/22 TIME: 10:16 Identification/Chief Complaint Chief Complaint Clinical abscess Source Source: Patient History of Present Illness History of Present Illness Patient is a 46-year-old male with no significant past medical history, who presents to the ER with complaints of perineal pain for the past 4 days. He initially thought his pain was due to hemorrhoids and applied topical cream without improvement. In the ED labs showed WBC 12.8. CT abdomen showed perianal abscess with suggestion of a sinus tract draining posteriorly and to the left of the anus, and right inguinal 1.1 cm subcutaneous fluid density thought to be subcutaneous abscess. Patient was admitted with general surgery consult. Past Medical History Cardiovascular: No pertinent hx Heme/Onc: No pertinent hx Hepatobiliary: No pertinent hx Psych: Addictions Past Surgical History Past Surgical History: No pertinent history Family History Family History: Hypertension Social History Smoke: <1 pack per day ALCOHOL: heavy Drugs: Marijuana Current Problem List Problem List Problems Medical Problems: (1) Perianal abscess Status: Acute Current Medications Current Medications Current Medications Sodium Chloride 1,000 ml @ 999 mls/hr 1X ONCE IV Last administered on 01/01/22at 17:46; Start 01/01/22 at 17:45; Stop 01/01/22 at 18:45; Status DC Fentanyl Citrate (Fentanyl 2ml Vial) 50 mcg 1X ONCE IVP Last administered on 01/01/22at 17:52; Start 01/01/22 at 17:45; Stop 01/01/22 at 17:48; Status DC Ondansetron HCl (Zofran) 4 mg 1X ONCE IVP Last administered on 01/01/22at 17:52; Start 01/01/22 at 17:45; Stop 01/01/22 at 17:48; Status DC Iohexol (Omnipaque 300 Mg/ml) 75 ml 1X ONCE IV Last administered on 01/01/22at 18:57; Start 01/01/22 at 18:45; Stop 01/01/22 at 18:48; Status DC Hydromorphone HCl (Dilaudid) 0.5 mg 1X ONCE IVP Last administered on 01/01/22at 20:01; Start 01/01/22 at 20:00; Stop 01/01/22 at 20:01; Status DC Ceftriaxone Sodium (Rocephin) 1 gm 1X ONCE IVP Last administered on 01/01/22at 21:22; Start 01/01/22 at 20:30; Stop 01/01/22 at 20:31; Status DC Metronidazole 100 ml @ 100 mls/hr 1X ONCE IV Last administered on 01/01/22at 21:22; Start 01/01/22 at 20:30; Stop 01/01/22 at 21:29; Status DC Ondansetron HCl (Zofran) 4 mg PRN Q8HRS PRN IVP NAUSEA/VOMITING 1ST CHOICE; Start 01/01/22 at 20:45; Stop 01/02/22 at 20:44 Fentanyl Citrate (Fentanyl 2ml Vial) 50 mcg PRN Q1HR PRN IVP SEVERE PAIN 7-10 Last administered on 01/01/22at 22:43; Start 01/01/22 at 20:45; Stop 01/02/22 at 20:44 Sodium Chloride 1,000 ml @ 75 mls/hr [id number] IV Last administered on 01/02/22at 03:35; Start 01/01/22 at 20:45 Metronidazole 100 ml @ 100 mls/hr Q8HRS IV Last administered on 01/02/22at 06:15; Start 01/02/22 at 06:00 Ketorolac Tromethamine (Toradol 15mg Vial) 15 mg 1X ONCE IVP Last administered on 01/02/22at 00:05; Start 01/02/22 at 00:00; Stop 01/02/22 at 00:01; Status DC Morphine Sulfate (Morphine Sulfate) 2 mg PRN Q2HR PRN IVP SEVERE PAIN 7-10 Last administered on 01/02/22at 03:35; Start 01/01/22 at 23:45 Famotidine (Pepcid Vial) 20 mg STK-MED ONCE .ROUTE ; Start 01/02/22 at 08:25; Stop 01/02/22 at 08:25; Status DC Lidocaine HCl (Lidocaine Pf 2% Vial) 5 ml STK-MED ONCE .ROUTE ; Start 01/02/22 at 08:25; Stop 01/02/22 at 08:25; Status DC Ondansetron HCl (Zofran) 4 mg STK-MED ONCE .ROUTE ; Start 01/02/22 at 08:25; Stop 01/02/22 at 08:25; Status DC Propofol (Diprivan) 200 mg STK-MED ONCE IV ; Start 01/02/22 at 08:25; Stop 01/02/22 at 08:25; Status DC Dexamethasone Sodium Phosphate (Decadron) 4 mg STK-MED ONCE .ROUTE ; Start 01/02/22 at 08:25; Stop 01/02/22 at 08:25; Status DC Midazolam HCl (Versed) 2 mg STK-MED ONCE .ROUTE ; Start 01/02/22 at 08:25; Stop 01/02/22 at 08:26; Status DC Fentanyl Citrate (Fentanyl 2ml Vial) 100 mcg STK-MED ONCE .ROUTE ; Start 01/02/22 at 08:25; Stop 01/02/22 at 08:26; Status DC Cefazolin Sodium/ Dextrose 50 ml @ 100 mls/hr 1X ONCE IV ; Start 01/02/22 at 09:00; Stop 01/02/22 at 09:29; Status DC Bupivacaine HCl/ Epinephrine Bitart (Sensorcain-Epi 0.5% Kit) 30 ml STK-MED ONCE .ROUTE ; Start 01/02/22 at 09:37; Stop 01/02/22 at 09:37; Status DC Active Scripts Active Reported Tylenol (Acetaminophen) 325 Mg Tablet 1,000 Mg PO PRN Q6HRS PRN Allergies Allergies: Coded Allergies: No Known Drug Allergies (Unverified , 10/29/14) ROS Review of System GENERAL: No history of weight change, weakness or fevers. SKIN: No bruising, hair changes or rashes. EYES: No blurred, double or loss of vision. NOSE AND THROAT: No history of nosebleeds, hoarseness or sore throat. HEART: Denies chest pain, denies palpitations. LUNGS: Denies cough, hemoptysis, wheezing or shortness of breath. GASTROINTESTINAL: Perennial pain. Denies nausea, vomiting, abdominal pain. GENITOURINARY: Denies dysuria, frequency, urgency, hematuria. NEUROLOGIC: Denies history of numbness, tingling, tremor or weakness. PSYCHIATRIC: Denies anxiety, denies depression. ENDOCRINE: No history of heat or cold intolerance, polyuria or polydipsia. EXTREMITIES: Denies muscle weakness, joint pain, pain on walking or stiffness. Physical Exam Physical Exam General: Alert, Oriented X3, Cooperative, No acute distress HEENT: PERRLA, EOMI Lungs: Clear to auscultation, Normal air movement Heart: RRR, no murmurs Cardiovascular: S1, S2 Abdomen: Normal bowel sounds, Soft. Dressings intact to right groin and perineal area with multiple [place] drains in place. Extremities: No clubbing, No cyanosis Skin: No rashes, No significant lesion Neuro: Normal speech, Normal tone, Sensation intact Psych/Mental Status: Mental status NL, Mood NL Vitals Vitals Vital Signs Date Time Temp Pulse Resp B/P (MAP) Pulse Ox O2 Delivery O2 Flow Rate FiO2 01/02/22 08:52 99.2 103 15 143/114 97 Room Air 99.2 Labs Labs Laboratory Tests Test 01/01/22 17:06 01/01/22 23:30 White Blood Count 12.8 x10^3/uL (4.0-11.0) Red Blood Count 4.97 x10^6/uL (4.30-5.70) Hemoglobin 16.3 g/dL (13.0-17.5) Hematocrit 48.2 % (39.0-53.0) Mean Corpuscular Volume 97 fL (79-100) Mean Corpuscular Hemoglobin 33 pg (25-35) Mean Corpuscular Hemoglobin Concent 34 g/dL (31-37) Red Cell Distribution Width 13.2 % (11.5-14.5) Platelet Count 391 x10^3/uL (140-400) Neutrophils (%) (Auto) 77 % (31-73) Lymphocytes (%) (Auto) 12 % (24-48) Monocytes (%) (Auto) 11 % (0-9) Eosinophils (%) (Auto) 0 % (0-3) Basophils (%) (Auto) 0 % (0-3) Neutrophils # (Auto) 9.8 x10^3/uL (1.8-7.7) Lymphocytes # (Auto) 1.6 x10^3/uL (1.0-4.8) Monocytes # (Auto) 1.4 x10^3/uL (0.0-1.1) Eosinophils # (Auto) 0.0 x10^3/uL (0.0-0.7) Basophils # (Auto) 0.1 x10^3/uL (0.0-0.2) Sodium Level 138 mmol/L (136-145) Potassium Level 4.2 mmol/L (3.5-5.1) Chloride Level 97 mmol/L (98-107) Carbon Dioxide Level 25 mmol/L (21-32) Anion Gap 16 (6-14) Blood Urea Nitrogen 13 mg/dL (8-26) Creatinine 0.8 mg/dL (0.7-1.3) Estimated GFR (Cockcroft-Gault) 127.1 BUN/Creatinine Ratio 16 (6-20) Glucose Level 99 mg/dL (70-99) Lactic Acid Level 1.7 mmol/L (0.4-2.0) Calcium Level 9.6 mg/dL (8.5-10.1) Total Bilirubin 0.7 mg/dL (0.2-1.0) Aspartate Amino Transf (AST/SGOT) 24 U/L (15-37) Alanine Aminotransferase (ALT/SGPT) 41 U/L (16-63) Alkaline Phosphatase 48 U/L (46-116) Total Protein 10.0 g/dL (6.4-8.2) Albumin 4.4 g/dL (3.4-5.0) Albumin/Globulin Ratio 0.8 (1.0-1.7) SARS-CoV-2 Antigen (Rapid) Negative (NEGATIVE) Laboratory Tests Test 01/01/22 17:06 01/01/22 23:30 White Blood Count 12.8 x10^3/uL (4.0-11.0) Red Blood Count 4.97 x10^6/uL (4.30-5.70) Hemoglobin 16.3 g/dL (13.0-17.5) Hematocrit 48.2 % (39.0-53.0) Mean Corpuscular Volume 97 fL (79-100) Mean Corpuscular Hemoglobin 33 pg (25-35) Mean Corpuscular Hemoglobin Concent 34 g/dL (31-37) Red Cell Distribution Width 13.2 % (11.5-14.5) Platelet Count 391 x10^3/uL (140-400) Neutrophils (%) (Auto) 77 % (31-73) Lymphocytes (%) (Auto) 12 % (24-48) Monocytes (%) (Auto) 11 % (0-9) Eosinophils (%) (Auto) 0 % (0-3) Basophils (%) (Auto) 0 % (0-3) Neutrophils # (Auto) 9.8 x10^3/uL (1.8-7.7) Lymphocytes # (Auto) 1.6 x10^3/uL (1.0-4.8) Monocytes # (Auto) 1.4 x10^3/uL (0.0-1.1) Eosinophils # (Auto) 0.0 x10^3/uL (0.0-0.7) Basophils # (Auto) 0.1 x10^3/uL (0.0-0.2) Sodium Level 138 mmol/L (136-145) Potassium Level 4.2 mmol/L (3.5-5.1) Chloride Level 97 mmol/L (98-107) Carbon Dioxide Level 25 mmol/L (21-32) Anion Gap 16 (6-14) Blood Urea Nitrogen 13 mg/dL (8-26) Creatinine 0.8 mg/dL (0.7-1.3) Estimated GFR (Cockcroft-Gault) 127.1 BUN/Creatinine Ratio 16 (6-20) Glucose Level 99 mg/dL (70-99) Lactic Acid Level 1.7 mmol/L (0.4-2.0) Calcium Level 9.6 mg/dL (8.5-10.1) Total Bilirubin 0.7 mg/dL (0.2-1.0) Aspartate Amino Transf (AST/SGOT) 24 U/L (15-37) Alanine Aminotransferase (ALT/SGPT) 41 U/L (16-63) Alkaline Phosphatase 48 U/L (46-116) Total Protein 10.0 g/dL (6.4-8.2) Albumin 4.4 g/dL (3.4-5.0) Albumin/Globulin Ratio 0.8 (1.0-1.7) SARS-CoV-2 Antigen (Rapid) Negative (NEGATIVE) Images Images PATIENT: SHAHZAD PETERSON ACCOUNT: [id number] : 1975 LOCATION: ER AGE: 46 SEX: M EXAM STATUS: REG ER ORD. PHYSICIAN: CHACE HYMAN APRN REASON: perirectal abscess, omni 300 75 ml iv PROCEDURE: CT ABD PELV W/ IV CONTRST ONLY EXAMINATION: CT ABDOMEN+PELVIS W. Technique: Axial images with coronal and sagittal reconstructions are performed of abdomen and pelvis with intravenous contrast. 75 mL of Omnipaque 300 was administered intravenously. One or more of the following radiation dose reduction techniques was used: automated exposure control, adjustment of mA and/or KV according to patient size, and/or utilization of iterative reconstruction technique. HISTORY: 46 years Male perirectal abscess. COMPARISON: February 18, 2009. FINDINGS: The lung bases appear clear. The liver, spleen, pancreas, and adrenal glands appear unremarkable. The kidneys have symmetric enhancement. There is no hydronephrosis. The abdominal aorta is normal in caliber. No para-aortic significantly enlarged lymph node is seen. The appendix is normal. There is no bowel obstruction. The urinary bladder appear unremarkable. In the right inguinal region there is a subcutaneous area of fluid density measuring 1.2 cm with surrounding skin thickening could relate to underlying sebaceous cyst or subcutaneous abscess. In the perianal region centered at the 4:00 position of the anal canal there is a fluid collection measuring 4 x 1.8 cm with craniocaudal extension of the 3 cm suggestive of a perianal abscess. There is suggestion of a sinus tract from this area draining to the left the posterior aspect of the anus. Correlate clinically. The osseous structures appear grossly unremarkable. IMPRESSION: 1. Perianal abscess with suggestion of a sinus tract draining posteriorly and to the left of the anus. 2. In the right inguinal region there is a 1.1 cm subcutaneous fluid density area which could relate to a sebaceous cyst or a subcutaneous abscess. VTE Prophylaxis Ordered VTE Prophylaxis Devices: Contraindicated VTE Pharmacological Prophylaxi: Yes Assessment/Plan Assessment/Plan Perianal abscess Plan: Patient s/p I&D of perianal abscess [place] drains in place Encourage smoking cessation Pain management FEN - Regular diet PPX - Heparin FULL CODE Dispo - inpatient for above Justifications for Admission Other Justification MERISSA TINOCO MD Jan 02, 2022 10:17
[2022-01-02] MEDS ORDERED: fentaNYL PF VIAL 100 MCG/2 ML VIAL IVP PRN ×2 (10:45)
[2022-01-02] MEDS ORDERED: IV RINGERS,LACTATED 1000ML 1,000 ML IV SCH (10:45)
[2022-01-02] MEDS ORDERED: PROCHLORPERAZINE 10 MG/2 ML VIAL. IVP PRN (10:45)
[2022-01-02] MEDS ORDERED: MORPHINE SULFATE 2 MG/ML INJ. IVP PRN (10:45)
[2022-01-02] MEDS ORDERED: HYDROmorphone 2 MG/ML INJ. IVP PRN (10:45)
[2022-01-02] MEDS: fentaNYL PF VIAL 100 MCG/2 ML VIAL IVP PRN ×2 (10:56→11:15)
--- NOTE | 2022-01-02 11:11 | PDOC4 ---
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 Right groin was addressed. Incision made over fluctuant area and purulent material evacuated. Leslie placed through counter incision superiorly and secured with 3 0 nylon. Wound packed with iodoform gauze. Dressing placed. Attention turned to perianal area with induration and purulent drainage multiple chronic sites. Anal exam demonstrated no obvious pathology. Abscess cavity was opened with incision and purulent drainage evacuated. No evidence of involvement extending to anal canal. Multiple leslie drains placed through areas of concern and secured with 3 0 nylon. Wound packed with iodoform gauze. Dressing placed. Patient tolerated procedure well and sent to PACU in stable condition. All counts correct. Wound class is 4. SHANE KUMARI MD Jan 02, 2022 11:11
[2022-01-02] MEDS ORDERED: IV NORMAL SALINE 1000ML BAG 1,000 ML IV SCH (11:15)
[2022-01-02] MEDS ORDERED: ONDANSETRON PF 4 MG/2 ML VIAL. IVP PRN (11:15)
[2022-01-02] MEDS ORDERED: NALOXONE 0.4 MG/ML VIAL. IV PRN (11:15)
[2022-01-02] MEDS ORDERED: 0.9 % SODIUM CHLORIDE 10 ML DISP.SYRIN. IV PRN (11:15)
[2022-01-02] MEDS: IV RINGERS,LACTATED 1000ML 1,000 ML IV SCH ×2 (11:15→22:13)
[2022-01-02] MEDS ORDERED: ZOLPIDEM 5 MG TABLET. PO PRN (13:15)
[2022-01-02] MEDS: DOCUSATE SODIUM 100 MG CAPSULE. PO SCH ×2 (14:23→20:49)
[2022-01-02] MEDS: HYDROcodone/APAP 5/325MG 1 TAB TABLET PO PRN ×2 (14:34→22:12)
[2022-01-02] MEDS: LACTOBACILLUS RHAMNOSUS GG 1 CAPSULE. PO SCH (20:49)
[2022-01-03 03:00] VITALS: BP 133/99
[2022-01-03] MEDS: MORPHINE SULFATE 2 MG/ML INJ. IVP PRN ×3 (03:05→22:01)
[2022-01-03] MEDS: HYDROcodone/APAP 5/325MG 1 TAB TABLET PO PRN ×3 (05:23→17:26)
[2022-01-03 07:15] VITALS: BP 136/81
[2022-01-03] MEDS: LACTOBACILLUS RHAMNOSUS GG 1 CAPSULE. PO SCH ×2 (08:12→20:18)
[2022-01-03] MEDS: DOCUSATE SODIUM 100 MG CAPSULE. PO SCH ×2 (08:12→20:18)
--- NOTE | 2022-01-03 08:46 | PDOC ---
SURGICAL PROGRESS NOTE DATE: 01/03/22 TIME: 08:45 Subjective sore, less pressure eating wants to go home Vital Signs Vital Signs Date Time Temp Pulse Resp B/P (MAP) Pulse Ox O2 Delivery O2 Flow Rate FiO2 01/03/22 07:15 98.5 86 20 136/81 (99) 96 Room Air 98.5 01/02/22 11:40 10.0 I&O Intake and Output 01/03/22 06:59 Intake Total 1640 ml Output Total 20 ml Balance 1620 ml Intake Oral 660 ml IV Total 980 ml Output Estimated Blood Loss 20 ml # Voids 1 General: Alert, Oriented X3, Cooperative Skin: Other (wounds with dressings in place) Labs Laboratory Tests Test 01/01/22 17:06 01/01/22 23:30 White Blood Count 12.8 x10^3/uL (4.0-11.0) Red Blood Count 4.97 x10^6/uL (4.30-5.70) Hemoglobin 16.3 g/dL (13.0-17.5) Hematocrit 48.2 % (39.0-53.0) Mean Corpuscular Volume 97 fL (79-100) Mean Corpuscular Hemoglobin 33 pg (25-35) Mean Corpuscular Hemoglobin Concent 34 g/dL (31-37) Red Cell Distribution Width 13.2 % (11.5-14.5) Platelet Count 391 x10^3/uL (140-400) Neutrophils (%) (Auto) 77 % (31-73) Lymphocytes (%) (Auto) 12 % (24-48) Monocytes (%) (Auto) 11 % (0-9) Eosinophils (%) (Auto) 0 % (0-3) Basophils (%) (Auto) 0 % (0-3) Neutrophils # (Auto) 9.8 x10^3/uL (1.8-7.7) Lymphocytes # (Auto) 1.6 x10^3/uL (1.0-4.8) Monocytes # (Auto) 1.4 x10^3/uL (0.0-1.1) Eosinophils # (Auto) 0.0 x10^3/uL (0.0-0.7) Basophils # (Auto) 0.1 x10^3/uL (0.0-0.2) Sodium Level 138 mmol/L (136-145) Potassium Level 4.2 mmol/L (3.5-5.1) Chloride Level 97 mmol/L (98-107) Carbon Dioxide Level 25 mmol/L (21-32) Anion Gap 16 (6-14) Blood Urea Nitrogen 13 mg/dL (8-26) Creatinine 0.8 mg/dL (0.7-1.3) Estimated GFR (Cockcroft-Gault) 127.1 BUN/Creatinine Ratio 16 (6-20) Glucose Level 99 mg/dL (70-99) Lactic Acid Level 1.7 mmol/L (0.4-2.0) Calcium Level 9.6 mg/dL (8.5-10.1) Total Bilirubin 0.7 mg/dL (0.2-1.0) Aspartate Amino Transf (AST/SGOT) 24 U/L (15-37) Alanine Aminotransferase (ALT/SGPT) 41 U/L (16-63) Alkaline Phosphatase 48 U/L (46-116) Total Protein 10.0 g/dL (6.4-8.2) Albumin 4.4 g/dL (3.4-5.0) Albumin/Globulin Ratio 0.8 (1.0-1.7) Coronavirus (COVID-19)(PCR) Not detected (NOT DETECTD) SARS-CoV-2 Antigen (Rapid) Negative (NEGATIVE) Problem List Problems Medical Problems: (1) Perianal abscess Status: Acute Assessment/Plan will leave packing today, remove tomorrow, will need leslie drains for about 5 days Justicifation of Admission Dx: Justifications for Admission: Justification of Admission Dx: 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
[2022-01-03] MEDS: POLYETHYLENE GLYCOL 3350 17 GM PACKET. PO SCH (09:00)
[2022-01-03] MEDS ORDERED: DOCUSATE SODIUM 100 MG CAPSULE. PO SCH (09:00)
[2022-01-03] MEDS: IV RINGERS,LACTATED 1000ML 1,000 ML IV SCH (09:45)
[2022-01-03 11:09] VITALS: BP 121/79
[2022-01-03 14:55] VITALS: BP 133/83
--- NOTE | 2022-01-03 17:46 | PDOC ---
[employer] PROGRESS NOTE Date of Service DOS: DATE: 01/03/22 TIME: 17:44 Chief Complaint Chief Complaint Perianal abscess Plan: Patient s/p I&D of perianal abscess --> IV flagyl ordered, will adjust based upon cultures [place] drains in place Encourage smoking cessation Pain management FEN - Regular diet PPX - Heparin FULL CODE Dispo - inpatient for above History of Present Illness History of Present Illness 01/03 Patient evaluated examined at bedside. Resting in bed said pain was controlled. He has a good number questions for him including plan of care how to prevent this in the future. Answered the best my ability. Per surgical note planning on dressing change tomorrow. Continue antibiotics. Abscess cultures pending. Vitals/I&O Vitals/I&O: Vital Signs Date Time Temp Pulse Resp B/P (MAP) Pulse Ox O2 Delivery O2 Flow Rate FiO2 01/03/22 14:55 98.4 80 18 133/83 (100) 97 Room Air 98.4 01/03/22 14:10 10.0 I & O 01/02/22 01/02/22 01/03/22 15:00 23:00 07:00 Intake Total 1100 ml 540 ml Output Total 20 ml Balance 1080 ml 540 ml Physical Exam General: Alert, Oriented X3, Cooperative Heart: Regular rate, Normal S1, Normal S2 Lungs: Clear Abdomen: Soft, No tenderness Extremities: No edema Skin: Other (wounds with dressings in place) Assessment and Plan Assessmemt and Plan Problems Medical Problems: (1) Perianal abscess Status: Acute Comment Review of Relevant I have reviewed the following items rai (where applicable) has been applied. Medications: Current Medications Medications (Trade) Dose Ordered Sig/Renata Route PRN Reason Start Time Stop Time Status Last Admin Dose Admin Lactobacillus Rhamnosus (Culturelle) 1 cap BID PO 01/02/22 21:00 01/03/22 08:12 Justifications for Admission Other Justification JACOBO JOHNSON MD Jan 03, 2022 17:46
[2022-01-03 19:25] VITALS: BP 136/91
[2022-01-03 23:12] VITALS: BP 138/85
[2022-01-04 02:30] VITALS: BP 118/79
[2022-01-04] MEDS ORDERED: metroNIDAZOLE 500 MG TABLET PO SCH (06:00)
[2022-01-04] MEDS: HYDROcodone/APAP 5/325MG 1 TAB TABLET PO PRN ×2 (06:05→11:34)
[2022-01-04 07:09] LABS: BILIRUBIN,URINE SMALL (NEG); CLARITY,URINE HAZY; COLOR,URINE AMBER; NITRITE,URINE POSITIVE (NEG); PROTEIN,URINE NEGATIVE (NEG-TRACE)
[2022-01-04 07:12] LABS: BACTERIA,URINE FEW /HPF (0-FEW); RBC,URINE RARE /HPF (0-2); WBC,URINE 0 /HPF (0-4)
[2022-01-04 07:15] VITALS: BP 116/70
[2022-01-04] MEDS: POLYETHYLENE GLYCOL 3350 17 GM PACKET. PO SCH ×2 (08:27→08:39)
[2022-01-04] MEDS: MORPHINE SULFATE 2 MG/ML INJ. IVP PRN (08:27)
[2022-01-04] MEDS: LACTOBACILLUS RHAMNOSUS GG 1 CAPSULE. PO SCH (08:27)
[2022-01-04] MEDS: DOCUSATE SODIUM 100 MG CAPSULE. PO SCH (08:27)
[2022-01-04] MEDS ORDERED: HYDROcodone/APAP 5/325MG 1 TAB TABLET PO ONE (08:45)
--- NOTE | 2022-01-04 08:53 | PDOC ---
SURGICAL PROGRESS NOTE DATE: 01/04/22 TIME: 08:52 Subjective feeling better, sore, but less Vital Signs Vital Signs Date Time Temp Pulse Resp B/P (MAP) Pulse Ox O2 Delivery O2 Flow Rate FiO2 01/04/22 07:15 98.2 74 20 116/70 (85) 96 Room Air 98.2 01/03/22 17:56 10.0 I&O Intake and Output 01/04/22 07:00 Intake Total 1890 ml Balance 1890 ml Intake Oral 790 ml IV Total 1100 ml # Voids 1 General: Alert, Oriented X3, Cooperative Skin: Other (packing removed from both wounds, drains in place) Labs Laboratory Tests Test 01/04/22 06:00 Urine Collection Type Unknown Urine Color Iliana Urine Clarity Hazy Urine pH 6.0 (<5.0-8.0) Urine Specific [place] 1.025 (1.000-1.030) Urine Protein Negative mg/dL (NEG-TRACE) Urine Glucose (UA) Negative mg/dL (NEG) Urine Ketones (Stick) 15 mg/dL (NEG) Urine Blood Negative (NEG) Urine Nitrite Positive (NEG) Urine Bilirubin Small (NEG) Urine Urobilinogen Dipstick 1.0 mg/dL (0.2 mg/dL) Urine Leukocyte Esterase Negative (NEG) Urine RBC Rare /HPF (0-2) Urine WBC 0 /HPF (0-4) Urine Bacteria Few /HPF (0-FEW) Laboratory Tests Test 01/04/22 06:00 Urine Collection Type Unknown Urine Color Iliana Urine Clarity Hazy Urine pH 6.0 (<5.0-8.0) Urine Specific [place] 1.025 (1.000-1.030) Urine Protein Negative mg/dL (NEG-TRACE) Urine Glucose (UA) Negative mg/dL (NEG) Urine Ketones (Stick) 15 mg/dL (NEG) Urine Blood Negative (NEG) Urine Nitrite Positive (NEG) Urine Bilirubin Small (NEG) Urine Urobilinogen Dipstick 1.0 mg/dL (0.2 mg/dL) Urine Leukocyte Esterase Negative (NEG) Urine RBC Rare /HPF (0-2) Urine WBC 0 /HPF (0-4) Urine Bacteria Few /HPF (0-FEW) Problem List Problems Medical Problems: (1) Perianal abscess Status: Acute Assessment/Plan home with drains will see next tues and remove drains abx per [facility] can dc when medically ready Justicifation of Admission Dx: Justifications for Admission: Justification of Admission Dx: Yes [employer] TECHNOLOGIST Jan 04, 2022 08:53
[2022-01-04] MEDS ORDERED: AMOX1TAB11 PO (10:12)
[2022-01-04] MEDS ORDERED: HYDR-2761 PO (10:12)
[2022-01-04] MEDS ORDERED: AMOXICILLIN/K CLAV 875/125MG TABLET. PO SCH (11:00)
[2022-01-04 11:01] VITALS: BP 111/71
--- NOTE | 2022-01-04 12:45 | NUR ---
Pt DC home in stable conditions with belongings accompanied by family. SL removed cath intact. DC instructions, medications and follow up appointment reviewed with patient. Denies having questions.
== END 2022-01-04 12:45 | disposition home or self-care (01) | DRG 348 ==
LOC: ER 16:10 → 4 NORTH 20:44
PROVIDERS: ADMIT Student in an Organized Health Care Education/Training Program; ATTEND Student in an Organized Health Care Education/Training Program
PROC: 0H99XZZ Drainage of Perineum Skin, External Approach (ICD-10-PCS; 2022-01-02)
PROC: 0D9Q0ZZ Drainage of Anus, Open Approach (ICD-10-PCS; principal; 2022-01-02 09:30)
DX: K61.2 Anorectal abscess (principal); L02.214 Cutaneous abscess of groin; F17.210 Nicotine dependence, cigarettes, uncomplicated; L73.2 Hidradenitis suppurativa; Z82.49 Family history of ischemic heart disease and other diseases of the circulatory system; Z20.822 Contact with and (suspected) exposure to COVID-19
CPT/HCPCS: 36415; 74177; 80053; 81001; 83605; 85025; 87040; 87075; 87086; 87426; 96361; 96365; 96375; A4930; A6253; A6266; A6402; J0690; J0696; J1100; J1170; J1885; J2250; J2270; J2405; J2704; J3010; J3490; J7030; J7120; Q9967; U0003; 99285-25; G0378